=== PATIENT | female | born 1990 | race American Indian/Alaskan Native ===

== ENCOUNTER 2017-06-21 12:27 | Emergency (ER) | payer SELFPAY ==
[2017-06-21 12:28] VITALS: BMI 25.7
[2017-06-21 13:04] VITALS: RESP 20
--- NOTE | 2017-06-21 13:47 | C.PDOC ---
History Of Present Illness <Fozia Whyte - Last Filed: 06/21/17 14:00> <Jennifer Diehl - Last Filed: 06/21/17 14:09> CC: "body aches" HPI: 26 year old female who presents to [facility] with body aches that started yesterday evening. She states she also had a minor cold about 2 weeks ago. She has had a dry cough that is going on for a week and when she coughs it gives her body aches. She also states she had chills overnight. She states she has not tried any medications for her symptoms. She denies having her flu vaccine this year. She states her daughter is sick at home with a viral infection and was seen by her doctor yesterday. She denies nausea, vomiting, fever, night sweats, diarrhea, constipation or dysuria. PMD: denies Medical History: denies Medications: denies Allergies: Penicillin - rash (Fozia Whyte) History Per: Patient History/Exam Limitations: no limitations Onset/Duration Of Symptoms: Days Current Symptoms Are (Timing): Still Present Location Of Pain: Diffuse Myalgias Associated Symptoms: Cough, Myalgias. denies: Fever, Chills, Sore Throat, Sputum, Sinus Drainage, Nasal Congestion, Nausea, Vomiting, Diarrhea <Fozia Whyte - Last Filed: 06/21/17 14:00> <Jennifer Diehl - Last Filed: 06/21/17 14:09> Time Seen by Provider: 06/21/17 13:08 Chief Complaint (Nursing): Flu-like Symptoms Past Medical History - Medical History PMH: No Chronic Diseases Family History: States: Unknown Family Hx - Social History Hx Alcohol Use: Yes Hx Substance Use: No - Immunization History Hx Tetanus Toxoid Vaccination: No Hx Influenza Vaccination: No Hx Pneumococcal Vaccination: No <Fozia Whyte - Last Filed: 06/21/17 14:00> Vital Signs: Last Vital Signs Temp 99.9 F H 06/21/17 12:59 Pulse 110 H 06/21/17 12:59 Resp 20 06/21/17 12:59 BP 146/87 06/21/17 12:59 Pulse Ox 99 06/21/17 14:00 - [facility] Procedures OTHER LOCAL DESTRUC SKIN (11/10/14) Review Of Systems Constitutional: Positive for: Chills, Malaise. Negative for: Fever, Sweats ENT: Negative for: Ear Pain, Nose Discharge, Nose Congestion, Throat Pain Cardiovascular: Negative for: Chest Pain, Palpitations Respiratory: Positive for: Cough. Negative for: Shortness of Breath, Sputum, Wheezing Gastrointestinal: Negative for: Nausea, Vomiting, Abdominal Pain, Diarrhea, Constipation Genitourinary: Negative for: Dysuria Neurological: Negative for: Weakness, Dizziness <Fozia Whyte - Last Filed: 06/21/17 14:00> Physical Exam - Physical Exam Appears: Well Skin: Normal Color Eye(s): bilateral: Normal Inspection, PERRL, EOMI Nose: Normal, No Discharge, No Epistaxis, No Tenderness Oral Mucosa: Moist Tongue: Normal Appearing Lips: Normal Appearing Throat: Normal, No Erythema, No Exudate Neck: Normal, No Midline Cervical Tenderness Lymphatic: No Adenopathy (negative - cervical and occipital lymph adenopathy ) Cardiovascular: Rhythm Regular, No Murmur Respiratory: Normal Breath Sounds, No Decreased Breath Sounds, No Accessory Muscle Use, No Rales, No Rhonchi, No Stridor, No Wheezing Gastrointestinal/Abdominal: Normal Exam, Bowel Sounds (normal), Soft, No Tenderness Extremity: No Tenderness, No Pedal Edema, No Calf Tenderness Neurological/Psych: Oriented x3, Normal Speech, Normal Cognition <Fozia Whyte - Last Filed: 06/21/17 14:00> ED Course And Treatment O2 Sat by Pulse Oximetry: 99 <Fozia Whyte - Last Filed: 06/21/17 14:00> Medical Decision Making <Fozia Whyte - Last Filed: 06/21/17 14:00> <Jennifer Diehl - Last Filed: 06/21/17 14:09> Medical Decision Making: Upper Respiratory Infection - viral - symptomatic treatment - Tylenol 600mg q6 as needed for body aches - Tessalon perles as needed for cough (Fozia Whyte) Disposition Discussed With : Jennifer Diehl Doctor Will See Patient In The: ED - Disposition Disposition Time: 14:00 <Fozia Whyte - Last Filed: 06/21/17 14:00> Counseled Patient/Family Regarding: Studies Performed, Diagnosis, Need For Followup, Rx Given <Jennifer Diehl - Last Filed: 06/21/17 14:09> - Disposition Referrals: [facility] [Outside] Disposition: HOME/ ROUTINE Condition: STABLE Additional Instructions: Please take new medications as needed for symptoms: Tylenol 600mg every 6 hours as needed for body aches Tessalon Perles 100mg three times a day as needed for co.ugh. Please call [phone] to schedule an appointment at [facility] in one week. Please return to the emergency room if symptoms return or worsen. Prescriptions: Benzonatate [Tessalon Perles] 100 mg PO TID PRN #[id number] PRN Reason: Cough Instructions: Viral Syndrome (DC) Forms: [employer] (Gambian) Print Language: ANGUILLAN - Clinical Impression Clinical Impression: Viral syndrome
[2017-06-21 14:26] VITALS: BP 126/83; PULSE 101; TEMP 99.6; O2SAT 100
== END 2017-06-21 14:26 | disposition home or self-care (01) ==
LOC: C.ER 12:27
DX: B34.9 Viral infection, unspecified (principal)